=== PATIENT | female | born 1970 | race Hispanic/Latino ===

== ENCOUNTER 2024-01-14 07:39 | Inpatient (IN) | payer BC ==
[2024-01-14] MEDS ORDERED: Ketorolac Tromethamine 30 MG (1 mL) VIAL ONE (08:02)
[2024-01-14] MEDS ORDERED: Ondansetron PF 4 MG/2 ML Vial ONE ×2 (08:03→13:38)
[2024-01-14] MEDS ORDERED: Morphine 2 MG/ML VIAL ONE ×2 (08:03→08:06)
[2024-01-14] MEDS ORDERED: PROPOFOL 20 ML ONE ×2 (08:22→13:38)
[2024-01-14] MEDS ORDERED: fentaNYL 50 mcg/mL 1 mL Vial ONE ×4 (08:37→14:37)
[2024-01-14] MEDS ORDERED: CEFAZOLIN 2 GM in Sodium Chloride 0.9% 100 ML IVPB SCH (09:45)
[2024-01-14] MEDS ORDERED: Morphine 4 MG/ML VIAL SLOW IVP PRN (09:53)
[2024-01-14] MEDS ORDERED: Acetaminophen 325 MG TAB PO PRN (09:53)
[2024-01-14] MEDS ORDERED: Ondansetron PF 4 MG/2 ML Vial IVP PRN (09:53)
[2024-01-14] MEDS ORDERED: Promethazine HCl 25 MG/ML VIAL IM PRN ×2 (09:53→16:11)
[2024-01-14 10:30] LABS: #Basophils 0.06 10x3/uL (0.0-0.2); %Basophils 0.7 % (0.0-1.0); %Eosinophils 3.4 % (0.0-10.0); %Lymphocytes 48.1 % (21.0-51.0); %Monocytes 7.8 % (0.0-10.0); %Neutrophils 39.8 % (42.0-75.0); Hematocrit 40.5 % (36.0-47.0); Hemoglobin 13.5 g/dL (12.0-16.0); Mean Corpuscular HGB CONC 33.3 g/dL (32.0-36.0); Mean Corpuscular Hemoglobin 29.9 pg (27.0-31.0); Mean Corpuscular Volume 89.8 fL (78.0-98.0); Mean Platelet Volume 9.2 fL (7.4-10.4); Platelet Count 287 10x3/uL (130-400); Red Blood Cell (RBC) Count 4.51 mill/uL (4.20-5.40)
[2024-01-14 10:41] LABS: INR-International Normal Ratio 0.9; Prothrombin Time 11.9 sec (12.0-14.7)
[2024-01-14 11:02] LABS: ALT (SGPT) 33 U/L (8-55); AST (SGOT) 24 U/L (5-34); Albumin 3.7 g/dL (3.5-5.0); Alkaline Phosphatase 116 U/L (40-110); Anion Gap 13 mmol/L (10-20); BUN (Urea Nitrogen) 21 mg/dL (9.8-20.1); Bilirubin, Total 0.3 mg/dL (0.2-1.2); Calc. Creatinine Clearance 0 mL/min (70-130); Calcium 9.1 mg/dL (7.8-10.44); Carbon Dioxide 21 mmol/L (22-29); Chloride 108 mmol/L (98-107); Estimated GFR 92; Globulin 3.6 g/dL (2.4-3.5); Glucose 168 mg/dL (70-105); Potassium 3.8 mmol/L (3.5-5.1); Protein, Total 7.3 g/dL (6.0-8.3); Sodium 138 mmol/L (136-145)
[2024-01-14 12:12] VITALS: BMI 46.4
[2024-01-14] MEDS ORDERED: Dexamethasone 20 MG/5 ML VIAL ONE (13:38)
[2024-01-14] MEDS ORDERED: PHENYLEPHRINE-NS 100 MCG/ML 10 ML SYRINGE ONE (13:38)
[2024-01-14] MEDS ORDERED: Midazolam HCl 2 mg/2 ml Vial ONE ×2 (13:38→14:23)
[2024-01-14] MEDS ORDERED: Lidocaine 1% PF 5 ML VIAL ONE (13:38)
[2024-01-14] MEDS ORDERED: fentaNYL PF 100 MCG/2 ML SYRINGE ONE (13:38)
[2024-01-14] MEDS ORDERED: Sodium Chloride 0.9% 100 ML ONE (14:16)
[2024-01-14] MEDS ORDERED: CEFAZOLIN 2 GM VIAL ONE (14:16)
[2024-01-14] MEDS ORDERED: Bupivacaine PF 0.5% 30 ML VIAL ONE (14:23)
[2024-01-14] MEDS ORDERED: Bupivacaine HCl 0.5%/Epinephrine 1:200,000/PF 30 ml Vial ONE (14:50)
[2024-01-14] MEDS ORDERED: Meperidine HCl/PF 25 MG/ML VIAL SLOW IVP PRN ×2 (16:11)
[2024-01-14] MEDS ORDERED: Ondansetron HCl/PF 4 MG/2 ML Vial IVP PRN (16:11)
[2024-01-14] MEDS ORDERED: HYDROmorphone 2 MG/ML VIAL SLOW IVP PRN (16:11)
[2024-01-14] MEDS ORDERED: Meperidine HCl/PF 25 MG (1 mL) VIAL ONE (16:11)
[2024-01-14] MEDS: Sodium Chloride 0.9% 1,000 ML IV SCH (19:32)
[2024-01-14] MEDS: Famotidine/PF 20 mg/2ml Vial SLOW IVP SCH (19:51)
[2024-01-14] MEDS: CEFAZOLIN 2 GM in Sodium Chloride 0.9% 100 ML IVPB SCH (21:58)
[2024-01-15 09:13] LABS: Anion Gap 12 mmol/L (10-20); BUN (Urea Nitrogen) 14 mg/dL (9.8-20.1); Calc. Creatinine Clearance 93 mL/min (70-130); Calcium 8.8 mg/dL (7.8-10.44); Carbon Dioxide 22 mmol/L (22-29); Chloride 109 mmol/L (98-107); Estimated GFR 101; Glucose 140 mg/dL (70-105); Potassium 3.7 mmol/L (3.5-5.1); Sodium 139 mmol/L (136-145)
[2024-01-15] MEDS: traMADol HCl 50 MG TAB PO PRN (15:33)
[2024-01-15 16:20] VITALS: BP 140/81; TEMP 99.2
== END 2024-01-15 17:55 | disposition home or self-care (01) | DRG 494 ==
LOC: ERS 07:39 → SURG A 11:31
PROVIDERS: ADMIT Surgery; ATTEND Surgery
PROC: 0QSJ04Z Reposition Right Fibula with Internal Fixation Device, Open Approach (ICD-10-PCS; principal; 2024-01-14)
PROC: 3E033XZ Introduction of Vasopressor into Peripheral Vein, Percutaneous Approach (ICD-10-PCS; 2024-01-14)
DX: S82.851A Displaced trimalleolar fracture of right lower leg, initial encounter for closed fracture (principal); W18.31XA Fall on same level due to stepping on an object, initial encounter
CPT/HCPCS: 27810; 36415; 80048; 80053; 85025; 85610; 85730; 93005; 96374; 96375; 99156; 99157; C1713; G0390; J0665; J1100; J1885; J2175; J2250; J2272; J2405; J2704; J3010; J3490; J7030